=== PATIENT | male | born 1990 | race Caucasian/White ===

== ENCOUNTER 2017-05-20 03:18 | Emergency (ER) | payer OTHER ==
--- NOTE | 2017-05-20 03:28 | EDPHY ---
H & P Time Seen by Provider: 05/20/17 03:25 HPI/ROS: CHIEF COMPLAINT: ANXIETY HISTORY OF PRESENT ILLNESS: The patient is a 26-year-old man from [place] with a history of anxiety who complains of anxiety and shortness of breath over the last 4 days. Tonight he was looking things up on the Internet and this made him more anxious and he decided to call an ambulance to come to the emergency department. On our examination he is calm and saturating 99% on room air and without complaint. He denies recent cough or illness or infection or fever. REVIEW OF SYSTEMS: Constitutional: denies: chills, fever, recent illness, recent injury EENTM: denies: blurred vision, double vision, nose congestion Respiratory: See HPI Cardiac: denies: chest pain, irregular heart rate, lightheadedness, palpitations Gastrointestinal/Abdominal: denies: abdominal pain, diarrhea, nausea, vomiting, blood streaked stools Genitourinary: denies: dysuria, frequency, hematuria, pain Musculoskeletal: denies: joint pain, muscle pain Skin: denies: lesions, rash, jaundice, bruising Neurological: denies: headache, numbness, paresthesia, tingling, dizziness, weakness Hematologic/Lymphatic: denies: blood clots, easy bleeding, easy bruising Immunologic/allergic: denies: HIV/AIDS, transplant EXAM: GENERAL: Well-appearing, well-nourished and in no acute distress. HEAD: Atraumatic, normocephalic. EYES: Pupils equal round and reactive to light, extraocular movements intact, sclera anicteric, conjunctiva are normal. ENT: TMs normal, nares patent, oropharynx clear without exudates. Moist mucous membranes. NECK: Normal range of motion, supple without lymphadenopathy or JVD. LUNGS: Breath sounds clear to auscultation bilaterally and equal. No wheezes rales or rhonchi. HEART: Regular rate and rhythm without murmurs, rubs or gallops. ABDOMEN: Soft, nontender, normoactive bowel sounds. No guarding, no rebound. No masses appreciated. BACK: No CVA tenderness, no spinal tenderness, step-offs or deformities EXTREMITIES: Normal range of motion, no pitting or edema. No clubbing or cyanosis. NEUROLOGICAL: Cranial nerves II through XII grossly intact. Normal speech, normal gait. 5/5 strength, normal movement in all extremities, normal sensation PSYCH: Normal mood, normal affect. SKIN: Warm, dry, normal turgor, no visible rashes or lesions. Source: Patient Exam Limitations: No limitations - Medical/Surgical History Hx Asthma: No Hx Chronic Respiratory Disease: No Hx Diabetes: No Hx Cardiac Disease: No Hx Renal Disease: No Hx Cirrhosis: No Hx Alcoholism: No - Family History Significant Family History: No pertinent family hx - Social History Alcohol Use: Sober Drug Use: None Constitutional: Initial Vital Signs Temperature (C) 37.0 C 05/20/17 03:18 Heart Rate 90 05/20/17 03:18 Respiratory Rate 18 05/20/17 03:18 Blood Pressure 125/82 H 05/20/17 03:18 O2 Sat (%) 99 05/20/17 03:18 O2 Delivery Mode Room Air Medical Decision Making ED Course/Re-evaluation: The patient appears to have had an anxiety attack. He states that he has anxiety medication at home but has not taken it in the last 2 weeks because he thought he did needed. We did discuss the possibility of PE with his risk factor being travel. He has no other risk factors. He is not tachycardic. He is not tachypneic. He is not hypoxic. He does not smoke. He has not had any leg pain or swelling etc. He does not use any hormones. After discussion the patient elected to simply go back home and tried taking his anxiety medications now that he knows vital signs are stable. I did offer him a prescription but he declined. I also gave him strict return precautions if he has any worsening symptoms over the next 24 hours. He understands and agrees with this plan and declines further workup or testing at this time. Differential Diagnosis: Partial list of the Differential diagnosis considered include but were not limited to; anxiety, PE and although unlikely based on the history and physical exam, I also considered asthma exacerbation, pneumonia. I discussed these differential diagnoses and the plan with the patient as well as the usual and expected course. The patient understands that the diagnosis is provisional and that in medicine we are not always correct and that further workup is often warranted. Usual and customary warnings were given. All of the patient's questions were answered. The patient was instructed to return to the emergency department should the symptoms at all worsen or return, otherwise to followup with the physician as we discussed. Departure - Departure Disposition: Home, Routine, Self-Care Clinical Impression: Anxiety about health Condition: Fair Instructions: Anxiety (ED) Additional Instructions: Resume your anxiety medication as we discussed Referrals: Birgit Scott MD [Medical Doctor] - 2-3 days, call for appt.
[2017-05-20 03:37] VITALS: RESP 18; TEMP 98.6
[2017-05-20 04:08] VITALS: BP 110/77; PULSE 88; O2SAT 98
== END 2017-05-20 04:08 | disposition home or self-care (01) ==
DX: F41.9 Anxiety disorder, unspecified (principal)